=== PATIENT | female | born 1950 | race Caucasian/White ===

== ENCOUNTER 2021-04-10 09:17 | Outpatient (CLI) | payer MEDICARE, SELFPAY ==
--- NOTE | 2021-04-10 09:30 | ECG_ITS ---
Measurements Intervals [place] Rate: 67 P: 41 GA: 152 QRS: -4 QRSD: 74 T: 19 QT: 399 QTc: 424 Interpretive Statements SINUS RHYTHM LOW QRS VOLTAGE IN PRECORDIAL LEADS BORDERLINE ECG Electronically Signed On 04-10-2021 9:55:12 CDT by Mauricio Alfonso D.O.
== END 2021-04-10 09:18 | disposition home or self-care (01) ==
LOC: ANHSURGERY 09:23
PROVIDERS: PCP Family Medicine; Visit Provider Surgery Plastic and Reconstructive Surgery
DX: Z01.818 Encounter for other preprocedural examination (principal); E78.00 Pure hypercholesterolemia, unspecified
CPT/HCPCS: 93005

== ENCOUNTER 2021-04-14 01:44 | Day surgery (SDC) | payer MEDICARE, SELFPAY ==
[2021-04-09 10:49] VITALS: BMI 20.4
[2021-04-14] VITALS (8 sets, daily range): BP systolic 119–156; BP diastolic 56–89; PULSE 63–77; RESP 12–16; TEMP 36.7–36.8; O2SAT 97–100; BMI 20.7
--- NOTE | 2021-04-14 09:59 | WPDANESEPPF ---
Anes - Initial Pre Proc Eval Procedure: Operation Date: 04/14/21 12:30 Proposed Procedures p Bilateral Upper Eyelid Blepharoplasty - Frank Honeycutt MD Date/Time: 04/14/21 09:59 Surgeon: Frank Honeycutt MD Pre Op Diagnosis: dermatochalasis Patient Data Age: 71 Gender: F Height: 1.55 m Weight: 48.99 kg Allergies Allergy/AdvReac Type Severity Reaction Status Date / Time Sulfa (Sulfonamide Allergy Hives Verified 04/14/21 10:32 Antibiotics) Home Medications Medication Instructions Recorded Confirmed Type denosumab 60 mg/mL subcutaneous 60 mg SUBCUT [id number] 12/01/20 04/09/21 History syringe diazepam 1 mg PO PRN PRN 12/01/20 04/09/21 History estradiol 10 mcg vaginal tablet 10 mcg VAGINAL 2XW 12/01/20 04/14/21 History ondansetron HCl 4 mg tablet 4 mg PO Q6H PRN #30 tablet 04/01/21 04/14/21 Rx acetaminophen-codeine 1 tablet PO Q6H PRN 04/09/21 04/09/21 History atorvastatin 10 mg PO QPM 04/09/21 04/14/21 History calcium carbonate-vitamin D3 1 tablet PO DAILY 04/09/21 04/14/21 History [Calcium 500 + D (D3)] cholecalciferol (vitamin D3) 100 mcg PO DAILY 04/09/21 04/14/21 History magnesium 400 mg PO DAILY 04/09/21 04/14/21 History omega-3 fatty acids [[place] 3 Fish 1,250 mg PO DAILY 04/09/21 04/14/21 History Oil Concentrate] vitamins A,C,Y-cjis-bovlgc 1 cap PO DAILY 04/09/21 04/14/21 History [PreserVision AREDS] Patient hx anesthesia problems: none Family hx anesthesia problems: none Results Review: All pre-operative results and documents have been reviewed as part of the pre-operative evaluation. [facility] Past Medical History Medical History (Updated 04/14/21 @ 10:00 by Thomas Edmonds MD) Anxiety Arthritis Dermatochalasis of both upper eyelids Hyperlipidemia Surgical History Surgical History History of hernia surgery History of hip replacement 2001, 2012 Social History Social History Smoking status: Former smoker Alcohol intake: current Drinks per week: 14 Alcohol use details: WINE Substance use: never Substance use type: does not use Living arrangements: with family Spiritual care concerns: No Anes - Eval Final PreProcedure Day of Procedure 04/14/21 09:59 Patient weight: normal Heart: regular rate and rhythm Lungs: clear to auscultation and normal air movement Airway: Mallampati scale class II Neurological: alert and oriented Last oral intake: >/= 8 hours ASA classification: II Emergent: no Anesthetic plan: proceed Anesthesia type and monitoring: general GIVS and LMA Results Review: All pre-operative results and documents have been reviewed as part of the pre-operative evaluation. Informed Consent: The patient's anesthetic plan and its attendant risks and benefits were discussed with the patient/family/POA. Questions were solicited and answers provided to the satisfaction of the patient/family/POA.
[2021-04-14] MEDS: LACTATED RINGERS 1,000 ML 30 ML IV CONT (10:58)
--- NOTE | 2021-04-14 11:19 | WPDHPUPDATE1 ---
History and Physical Update Update Date/Time: 04/14/21 11:19 History and Physical has been reviewed, including an updated exam of the patient. There are NO changes in the patient's condition. Risks, benefits, and alternatives have been discussed and questions answered. Patient agrees to proceed with procedure.
--- NOTE | 2021-04-14 11:44 | W.PM.PROC2 ---
Procedure Note - Detailed Date of Procedure 04/14/21 Pre-op Diagnosis dermatochalasis Post-op Diagnosis same Procedure Performed Bilateral upper eyelid blepharoplasty Surgeon Frank Honeycutt MD Anesthesia general Description of Procedure Preoperatively the risks, benefits, alternatives were discussed in extensive detail. I want her and her family to be very realistic about the risks involved as well as expectations. Made sure answered all of their questions are satisfaction. Consent obtained. Patient was marked in the preoperative holding area. Marked along the tarsal create an estimated volume to be removed. I used a pinch test and she had no lagophthalmos when estimating the volume of resection. Patient was taken to the operating room placed supine on the operating room table. Anesthesia provided by anesthesiology and prepped and draped in a standard sterile fashion. Surgical time-out was taken. 1% lidocaine and 0.25% Marcaine with epinephrine was used anesthetize locally. Incision was made excising the skin flap. Open the medial and middle fat compartments and rate removed any excess adiposity conservatively and there is no evidence of deep structure injury. I closed using running subcuticular 5 0 Prolene. This was secured on each end using Steri-Strips. Tolerated the procedure well. No lagophthalmos at the end of the case. [place] taken to the PACU without difficulty. All instrument sponge counts were correct at the end of the case. Estimated Blood Loss 5 Drains No Packing No Pathology none sent Complications No immediate complications Condition stable Disposition PACU
[2021-04-14] MEDS: ceFAZolin 2 GM/D5W 50 ML 2 GM/50 ML BAG IVPB (11:47)
[2021-04-14] MEDS: BUPIVACAINE HCL 0.25% PF 30 ML VIAL INFILTRATE (12:39)
[2021-04-14] MEDS: LIDO 1%/EPINEPHRINE/PF 1:200,000 30 ML VIAL XX (12:40)
[2021-04-14] MEDS: NEOMYCIN/POLYMYXIN/BACITRACIN OPHTH OINTMENT 3.5 GM TUBE 1 APPLIC EACH EYE (12:48)
[2021-04-14] MEDS: BALANCED SALT SOLN OPHTH IRRIG 30 ML BTL EACH EYE (12:49)
== END 2021-04-14 14:30 | disposition home or self-care (01) ==
PROVIDERS: PCP Family Medicine; Visit Provider Surgery Plastic and Reconstructive Surgery
PROC: (CPT 15822; principal; 2021-04-14 12:30)
DX: H02.834 Dermatochalasis of left upper eyelid (principal); H02.831 Dermatochalasis of right upper eyelid; E78.00 Pure hypercholesterolemia, unspecified; Z96.649 Presence of unspecified artificial hip joint; Z87.891 Personal history of nicotine dependence
CPT/HCPCS: 15822 ×2; 93005; A9270; J0690; J2250; J2405; J2704; J3010; J7120

== ENCOUNTER 2021-10-29 10:54 | Emergency (ER) | payer MEDICARE, SELFPAY ==
[2021-10-29] VITALS (14 sets, daily range): BP systolic 149–161; BP diastolic 73–90; PULSE 61–83; RESP 9–19; TEMP 36.4–36.6; O2SAT 98–100
--- NOTE | 2021-10-29 10:59 | ECG_ITS ---
Measurements Intervals [place] Rate: 67 P: 39 VT: 140 QRS: -14 QRSD: 81 T: 13 QT: 400 QTc: 425 Interpretive Statements SINUS RHYTHM LOW QRS VOLTAGE IN PRECORDIAL LEADS BASELINE ARTIFACT- I, III, AVL BORDERLINE ECG Electronically Signed On 10-29-2021 11:37:16 CDT by Mauricio Alfonso D.O.
[2021-10-29 11:21] LABS: Basophils Absolute Auto 0.1 K/mm3 (0.0-0.1); Basophils Percent Auto 1.1 % (0.2-1.2); Eosinophils Absolute Auto 0.4 K/mm3 (0-0.3); Hematocrit 36.3 % (37.0-47.0); Hemoglobin 11.9 g/dL (12.0-15.0); Immature Granulocyte Absolute 0.04 K/mm3 (0.00-0.031); Immature Granulocyte Percent A 0.5 % (0-0.5); Lymphocytes Absolute Auto 2.91 K/mm3 (0.9-3.2); Lymphocytes Percent Auto 39.1 % (18.3-44.2); Mean Corpuscular HGB Conc 32.8 g/dl (32-36); Mean Corpuscular Hemoglobin 30.5 pg (26-34); Mean Corpuscular Volume 93.1 fl (80-100); Mean Platelet Volume 9.2 fl (7.4-10.4); Monocytes Absolute Auto 0.8 K/mm3 (0.1-0.6); Monocytes Percent Auto 10.1 % (2.6-8.5); Neutrophils Absolute Auto 3.3 K/mm3 (1.3-6.7); Neutrophils Percent Auto 44.2 % (45.5-73.1); Platelet Count Result 291 k/mm3 (150-375); Red Cell Distribution Width 13.8 % (11.5-14.5); White Blood Count 7.4 K/mm3 (4.5-10.0)
[2021-10-29 11:35] LABS: Alanine Aminotransferase 22 U/L (6-35); Albumin Level 4.3 g/dL (3.5-5.1); Alkaline Phosphatase 41 U/L (38-126); Anion Gap 8 mmol/L (8-16); Aspartate Amino Transferase 32 U/L (14-36); Bilirubin,Total 0.4 mg/dL (0.2-1.3); Blood Urea Nitrogen 13 mg/dL (7-17); Calcium 9.2 mg/dL (8.4-10.2); Carbon Dioxide 28 mmol/L (22-30); Chloride 102 mmol/L (98-107); Estimated CRCL calculation 51 ml/min; Estimated Glomerular Filt Rate > 60; Glucose 128 mg/dL (65-110); Sodium 138 mmol/L (137-145)
[2021-10-29 12:25] LABS: Add Urine Microscopic? NO; Appearance Urine Clear (Clear); Bilirubin Urine Negative (Negative); Blood Urine Negative (Negative); Color Urine Yellow (Yellow); Glucose Urine UA Negative (Negative); Ketones Urine Negative (Negative); Leukocyte Esterase Ur Negative LEU/UL (Negative); Nitrate Urine Negative (Negative); Protein Urine Negative (Negative); Specific Grav Ur 1.015 (1.001-1.035); Urobilinogen Urine 0.2 mg/dL (<2.0); pH Urine 7.5 (5.0-9.0)
[2021-10-29] MEDS: SODIUM CHLORIDE 0.9% IV 1,000 ML 999 ML IV CONT (13:00)
--- NOTE | 2021-10-29 13:02 | ED.DIZZY ---
HPI - Dizziness General Chief Complaint: Dizziness Stated Complaint: dizzy Time Seen by Provider: 10/29/21 12:12 Source: patient History of Present Illness HPI Narrative: Patient presents with dizziness. She was at her usual workout at the [facility] when she was doing her workout she did feel unwell described dizziness as if she was going to pass out she sat down relax and her symptoms improved. She was referred to an urgent care in the urgent care referred to the ER for further evaluation. She denies any chest pain or shortness of breath denies any nausea vomiting or diaphoresis. She reports being eaten and drinking normally over the past couple days. She does report she has had diarrhea over the past days. She denies any fevers or cough. Reports she is feeling much improved at the time of ER evaluation. The episode was brief Related Data Home Medications Medication Instructions Recorded Confirmed denosumab 60 mg/mL subcutaneous 60 mg SUBCUT [id number] 12/01/20 04/09/21 syringe diazepam 1 mg PO PRN PRN 12/01/20 04/09/21 estradiol 10 mcg vaginal tablet 10 mcg VAGINAL 2XW 12/01/20 04/14/21 PreserVision AREDS 1 cap PO DAILY 04/09/21 04/14/21 acetaminophen-codeine 1 tablet PO Q6H PRN 04/09/21 04/09/21 atorvastatin 10 mg PO QPM 04/09/21 04/14/21 calcium carbonate-vitamin D3 1 tablet PO DAILY 04/09/21 04/14/21 cholecalciferol (vitamin D3) 100 mcg PO DAILY 04/09/21 04/14/21 magnesium 400 mg PO DAILY 04/09/21 04/14/21 omega-3 fatty acids 1,250 mg PO DAILY 04/09/21 04/14/21 Allergies Allergy/AdvReac Type Severity Reaction Status Date / Time Sulfa (Sulfonamide Allergy Hives Verified 06/15/21 09:24 Antibiotics) Review of Systems Review of Systems: CONSTITUTIONAL: Denies fever, chills, or sweats. EYES: Denies visual changes, redness, or discharge. ENT: Denies rhinorrhea, congestion, sore throat, or otalgia. CARDIOVASCULAR: Denies chest pain, palpitations, or edema. RESPIRATORY: Denies cough or dyspnea. GASTROINTESTINAL: Denies abdominal pain, nausea, vomiting, or diarrhea. GENITOURINARY: Denies dysuria or hematuria. SKIN: Denies rash or itching. MUSCULOSKELETAL: Denies back pain, joint pain, or myalgia. NEUROLOGIC: Denies headache, numbness, or weakness. PSYCHIATRIC: Denies anxiety or depression. All systems reviewed & are unremarkable except as noted in HPI and below PMFSH Past Medical History Medical History Anxiety Arthritis Dermatochalasis of both upper eyelids Hyperlipidemia Surgical History Surgical History History of hernia surgery History of hip replacement 2000, 2011 Social History Social History Smoking status: Never smoker Alcohol intake: current Drinks per week: 14 Alcohol use details: WINE Substance use: never Substance use type: does not use Spiritual care concerns: No Exam Narrative: GENERAL: Well-appearing, well-nourished, and in no acute distress. HEAD: Normocephalic, atraumatic. EYES: PERRLA and EOMI. ENT: Nares clear, no rhinorrhea or epistaxis. Mucous membranes moist. NECK: Supple. No masses. No JVD CHEST: Clear to auscultation. No respiratory distress. No wheezes rales or rhonchi HEART: Regular rate and rhythm. No murmur heard. Normal peripheral pulses. ABDOMEN: Soft, nontender, nondistended, normal active bowel sounds. EXTREMITIES: Normal range of motion. No edema. SKIN: Warm, dry, no rash. NEURO: No focal deficits. Alert and oriented x3. PSYCH: Normal mood and affect. Course Reevaluation(s) Reevaluation #1: Patient reports she is feeling improved results and plan reviewed with patient. With a negative work-up thus far she is appropriate for trial of outpatient supportive therapies this is the patient's preference. Date: 10/29/21 Time: 13:07 Vital Signs Vital signs: Vital Signs Temperature 36.
== END 2021-10-29 13:24 | disposition home or self-care (01) ==
PROVIDERS: Emergency Medicine; Emergency Provider Emergency Medicine; PCP Family Medicine
DX: R42 Dizziness and giddiness (principal); E78.5 Hyperlipidemia, unspecified; M19.90 Unspecified osteoarthritis, unspecified site; F41.9 Anxiety disorder, unspecified; H02.834 Dermatochalasis of left upper eyelid; H02.831 Dermatochalasis of right upper eyelid; Z96.649 Presence of unspecified artificial hip joint; R94.31 Abnormal electrocardiogram [ECG] [EKG]
CPT/HCPCS: 36415; 80053; 81003; 85025; 93005; 96360; 99284; J7030